=== PATIENT | male | born 1965 | race Hispanic/Latino ===

== ENCOUNTER 2023-09-03 18:20 | Emergency (ER) | payer OTHER ==
[~2023-09-03] VITALS: Ht 170.2 cm; Wt 74.8 kg
[2023-09-03 19:31] VITALS: PULSE 94; RESP 23; TEMP 99.5
[2023-09-03 19:39] LABS: INFLUENZAE A&B ANTIGEN (RAPID) NEGATIVE (NEGATIVE); RESPIRATORY SYNC. VIRUS NEGATIVE (NEGATIVE)
[2023-09-03] MEDS ORDERED: AZITHROMYCIN250 MG PO (21:28)
[2023-09-03 21:39] VITALS: BP 123/76; PULSE 97; RESP 18; TEMP 99.7; O2SAT 99
== END 2023-09-03 21:41 | disposition home or self-care (01) ==
LOC: ER 18:28
DX: R50.9 Fever, unspecified (principal); J40 Bronchitis, not specified as acute or chronic; J06.9 Acute upper respiratory infection, unspecified; R09.89 Other specified symptoms and signs involving the circulatory and respiratory systems; R05.9 Cough, unspecified; R51.9 Headache, unspecified; Z11.52 Encounter for screening for COVID-19
CPT/HCPCS: 71045; 87400; 87420; 99283; U0002